=== PATIENT | female | born 1995 | race Caucasian/White ===

== ENCOUNTER 2025-09-20 12:55 | Outpatient (CLI) | payer OTHER, SELFPAY ==
--- NOTE | 2025-09-20 13:04 | DI.US.S_ITS ---
PROCEDURE: US OB <= 14 WEEKS FETUS INDICATIONS: Suspected miscarriage OUTSIDE/PRIOR DATING DATA: Last menstrual period (LMP): 06/28/2025. LMP-based estimated date of delivery ([place]): 04/04/2026. First dating scan (date and location): 09/20/2025. Estimated date of delivery ([place]) from first dating scan: 10 weeks 5 days. TECHNIQUE: Real-time scanning was performed of the fetus and maternal pelvic organs, with image documentation. Endovaginal scanning was also performed to better visualize the fetus. COMPARISON: None. FINDINGS: Fetus: 3.8 cm in crown-rump length. No cardiac activity. IMPRESSION: Findings diagnostic of early loss (miscarriage). We strive to produce accurate, complete, and clear reports of imaging services. To assist us in improving patient care, this report was composed using standard report templates and voice recognition software. Therefore, it may contain abnormal punctuation, insertions and/or omissions. Occasional wrong-word or sound-alike substitutions may occur. Though we review the report and make efforts to correct it, we do recommend that the report be read carefully in proper context to recognize any text inaccuracies. Dictated by: Gilles Canada M.D. on 09/20/2025 at 13:09 Approved by: Gilles Canada M.D. on 09/20/2025 at 13:13
== END 2025-09-20 14:10 | disposition home or self-care (01) ==
LOC: LABOR 14:20 → OB 09-22 09:16
PROVIDERS: PCP Family Medicine; Referring Provider Advanced Practice Midwife; Visit Provider Advanced Practice Midwife
DX: O03.9 Complete or unspecified spontaneous abortion without complication (principal)
CPT/HCPCS: 76801; G0378; G0379

== ENCOUNTER 2025-09-26 08:28 | Day surgery (SDC) | payer OTHER, SELFPAY ==
[2025-09-26] VITALS (8 sets, daily range): BP systolic 117–145; BP diastolic 57–80; PULSE 70–83; RESP 16; TEMP 36.6–36.9; O2SAT 96–100
--- NOTE | 2025-09-26 | PATH_ITS ---
[facility] Accession Number: [id number] No. of containers..01 Tissue . 01 Material submitted: . product of conception - PRODUCTS OF CONCEPTION . 01 Diagnosis: PRODUCTS OF CONCEPTION: Immature chorionic villi and decidua, consistent with products of conception. Negative for gestational trophoblastic disease. MRV 09/30/2025 1437 Local . 01 Electronically signed: . Abel Haji MD, Pathologist NPI- [id number] . 01 Gross description: . The specimen is received in formalin, labeled with two patient identifiers and products of conception and consists of a 13.5 x 6.5 x 2.8 cm aggregate of papilliferous tissue admixed with fibromembranous tissue and clotted blood. No distinct tissue is appreciated. A open claims representative section of the papilliferous tissue is submitted in cassette A1. ([id number]) /MRV 09/28/2025 1604 Local . 01 Pathologist provided ICD-10: O02.1 . 01 CPT . 441224 Specimen Comment: A courtesy copy of this report has been sent to [facility] Pathology Performed at: [address] [facility] [id number] MD Cr Brown MD Phone: [phone]
[2025-09-26] MEDS: DOXYCYCLINE HYCLATE 100 MG TABLET 200 MG PO (08:44)
[2025-09-26] MEDS: LACTATED RINGERS 1,000 ML 42 ML IV (08:44)
[2025-09-26] MEDS: ACETAMINOPHEN IV 1,000 MG/100 ML VIAL 400 MG IV (08:46)
--- NOTE | 2025-09-26 09:26 | SUR.PREOP ---
Spoke with Dr Arroyo in OR. New order for zofran IV for emesis after taking oral antibiotic
[2025-09-26] MEDS: ONDANSETRON 4 MG/2 ML INJ IV (09:33)
--- NOTE | 2025-09-26 09:57 | P.HPOB_ITS ---
History of Present Illness History of Present Illness Reason for admission: missed Narrative: Blas Espinal is a 30 year old female FORMERLY [facility], 1928–1983 Social History Smoking Status: Never smoker Meds Home Medications and Allergies Home Medications ?Medication ?Instructions ?Recorded ?Confirmed ?Type No Known Home Medications 09/26/2509/08 History Allergies Allergy/AdvReac Type Severity Reaction Status Date / Time metronidazole (From Flagyl) Allergy sob Verified 09/26/25 08:47 Penicillins Allergy Rash Verified 09/26/25 08:47 Review of Systems Review of Systems ROS: Yes All systems reviewed with the patient and are negative except as otherwise documented Exam Vital Signs (past 8 hours): - 09/26/25 09:01 Temperature 98.2 F Pulse Rate 83 Respiratory Rate 16 Blood Pressure 117/80 Pulse Oximetry 97 Oxygen Delivery Method Room Air Oxygen Delivery Method Room Air Const General: healthy appearing, comfortable and No acute distress Resp Effort & Inspection: normal respiratory effort and able to speak in complete sentences Skin General: no rashes or lesions noted Neuro Cognition: normal cognition Speech: speech normal Extrem General: normal to inspection Psych Mood: congruent mood Affect: normal affect Objective Imaging US - abdomen: Radiologist's impression: INDICATIONS: Suspected miscarriage OUTSIDE/PRIOR DATING DATA: Last menstrual period (LMP): 06/28/2025. LMP-based estimated date of delivery ([place]): 04/04/2026. First dating scan (date and location): 09/20/2025. Estimated date of delivery ([place]) from first dating scan: 10 weeks 5 days. TECHNIQUE: Real-time scanning was performed of the fetus and maternal pelvic organs, with image documentation. Endovaginal scanning was also performed to better visualize the fetus. COMPARISON: None. FINDINGS: Fetus: 3.8 cm in crown-rump length. No cardiac activity. IMPRESSION: Findings diagnostic of early loss (miscarriage). We strive to produce accurate, complete, and clear reports of imaging services. To assist us in improving patient care, this report was composed using standard report templates and voice recognition software. Therefore, it may contain abnormal punctuation, insertions and/or omissions. Occasional wrong-word or sound-alike substitutions may occur. Though we review the report and make efforts to correct it, we do recommend that the report be read carefully in proper context to recognize any text inaccuracies. Dictated by: Gilles Canada M.D. on 09/20/2025 at 13:09 Approved by: Gilles Canada M.D. on 09/20/2025 at 13:13 Assessment & Plan Assessment and plan (1) Missed : Status: Acute (2) Rh negative state in antepartum period: Status: Acute Assessment & Plan narrative: 30yo F with MAB diagnosed this week, presenting for suction D&C. She denies any vaginal bleeding or symptoms this week. She reports an Rh negative blood type. We reviewed the risk/benefit of this procedure, and signed the surgical consent today. We reviewed post-op expectations and reasons to call our office or go to the ER. -plan for 200mg doxycycline for surgical prophylaxis -ordered stat ABO Rh blood typing; plan for rhogam prior to discharge -all her and her partner's questions were answered at this time, and she desires to proceed with surgery as discussed Surgery consent We discussed the risks/benefits/alternatives to the proposed procedure, to include but not limited to: -risk of bleeding, requiring medications, blood products, or other procedures as indicated -risk of infection, requiring prolonged hospital stay or other procedures -risk of injury to other structures, including bowel, bladder, blood vessels, nerves, etc. which may also require additional procedures -risk of adverse reaction to anesthesia or medications -risk of venous thromboembolism and associated sequelae -risk of rare complications such as cardiac arrest, or extremely rarely, Patient is aware of the risks, and desires to proceed with planned surgical procedure. Time-Based Coding :: [30min] spent with patient and on the chart (including review of chart, obtaining history, exam, reviewing outside data, placing orders, documenting exam and treatment plan, and counseling patient) on [09/26/25].
--- NOTE | 2025-09-26 10:15 | SUR.OPER ---
Lithotomy on padded OR bed, head on pillow and stacked blankets, torso on foam wedge, safety strap to upper body, arms secured on padded arm boards at <90 degrees abduction. Legs secured in padded yellow fins stirrups.
[2025-09-26] MEDS: DOXYCYCLINE 200 MG in SODIUM CHLORIDE 0.9% 250 ML 250 MG IV (10:29)
[2025-09-26] MEDS: METHYLERGONOVINE 0.2 MG/ML VIAL IM (10:48)
[2025-09-26] MEDS: SILVER NITRATE STICK 3 EACH TOP (10:51)
--- NOTE | 2025-09-26 11:04 | PM.OP.1 ---
Operative Date/Time/Diagnoses Date of procedure: 09/26/25 Time of procedure: 10:30 Pre-op diagnosis: Missed Rh negative status Post-op diagnosis: same Procedure & Clinicians Procedure: Suction dilation and curettage Same procedure(s) as scheduled: Yes Indications: 30yo F with MAB, counseled and consented for the above procedure. Surgeon: Carolyn Brooke Assisted?: No Anesthesia Type: General Operative Notes Findings: Normal appearing vulva, vagina, and cervix. Moderate amount of tissue evacuated from the uterus. Specimen(s): other (products of conception) Applied: none Estimated Blood Loss (mL): 200 Blood products transfused: none Procedure in detail: The risks, benefits, indications and alternatives of the procedure were reviewed with the patient and informed consent was obtained. She voided prior to entering the OR. The pt was then taken to the operating room where IV sedation was obtained without difficulty. The pt was placed in the low lithotomy position using gel-padded Kedar Stirrups. The pt was then prepped and draped in the sterile fashion. She received 200mg doxycycline for surgical prophylaxis. A sterile speculum was placed in the patient?s vagina and the cervix was visualized.? A single tooth tenaculum was used to grasp the anterior lip of the cervix. The cervix was then gently, serially dilated to a size 11 Hegar dilator. An 11mm curved suction catheter was then introduced into the uterine cavity and gently advanced to the uterine fundus. The suction device was then activated and the catheter was rotated to clear the uterus of products of conception. Multiple passes were performed with an adequate amount of tissue obtained. A gentle, sharp curettage was then performed until a gritty texture was noted. Brisk bleeding was noted during the procedure, so 1 dose of methergine was administered. One final pass of the suction catheter was then performed with minimal tissue obtained and slowed uterine bleeding. All tissue was sent to pathology for review. The single tooth tenaculum was then removed from the anterior lip of the cervix. The tenaculum sites were noted to be hemostatic with direct pressure and silver nitrate. All instruments were then removed from the patient?s vagina. At the completion of the case the sponge and needle counts were correct x 2. The patient tolerated the procedure well and was taken to the PACU in stable condition. Complications: none Post-operative Condition: stable Disposition: same day surgery Plan for aftercare: Rhogam given prior to discharge.
[2025-09-26] MEDS: RHO(D) IMMUNE GLOBULIN 1,500 UNIT SYRINGE 1500 UNIT IM (11:44)
== END 2025-09-26 12:14 | disposition home or self-care (01) ==
PROVIDERS: PCP Family Medicine; Referring Provider Family Medicine; Visit Provider Student in an Organized Health Care Education/Training Program
PROC: (CPT 58120; principal; 2025-09-26 09:45)
DX: O02.1 Missed abortion (principal); Z67.11 Type A blood, Rh negative
CPT/HCPCS: 59820; 86900; 86901; J0131; J1100; J1885; J2210; J2405; J2704; J2790; J3010; J7050; J7120